=== PATIENT | male | born 1970 | race Caucasian/White ===

== ENCOUNTER → 2017-03-29 | Outpatient (CLI) | payer BC ==
--- NOTE | 2017-03-29 10:25 | US ---
EXAMINATION TYPE: US abdomen complete DATE OF EXAM: 03/29/2017 COMPARISON: NONE CLINICAL HISTORY: R11.2 Nausea/vomiting. Nausea and indigestion EXAM MEASUREMENTS: Liver Length: 17.4 cm Gallbladder Wall: 0.2 cm CBD: 0.3 cm Spleen: 10.7 cm Right Kidney: 12.0 x 4.7 x 5.3cm Left Kidney: 11.1 x 6.2 x 5.8cm Pancreas: Obscured by bowel gas Liver: attenuating Gallbladder: At least non-mobile, nonshadowing hyperechoic area measuring 4-5 mm is seen most compat ible with a polyp. Evidence for sonographic Krueger's sign: no CBD: wnl Spleen: wnl Right Kidney: no evidence of hydronephrosis or mass Left Kidney: no evidence of hydronephrosis or mass Upper IVC: wnl Abd Aorta: visualized portions appear wnl IMPRESSION: 1. No evidence of acute cholecystitis. At least one 4-5 mm gallbladder polyp is seen within the gallb ladder body dependently. Annual follow-up is recommended to ensure no interval growth.
== END | disposition home or self-care (01) ==
LOC: RADUSWWP 07:34
PROVIDERS: ATTEND Family Medicine
DX: K82.4 Cholesterolosis of gallbladder (principal)
CPT/HCPCS: 76700

== ENCOUNTER 2017-10-21 07:10 | Inpatient (IN) | payer BC ==
--- NOTE | 2017-10-21 07:55 | ED ---
General Adult HPI - General Chief complaint: Psychiatric Symptoms Stated complaint: menal health Time Seen by Provider: 10/21/17 07:40 Source: patient, RN notes reviewed Mode of arrival: ambulatory Limitations: no limitations - History of Present Illness Initial comments: Patient is a pleasant 47-year-old male presenting to emergency department with concerns for depression. Patient states he has chronic depression however is been much worse lately. Patient has thoughts of cutting himself with a scalpel in the neck. Patient states no history of previous attempts. No alcohol use last evening years. Occasional marijuana use. No physical complaints. No homicidal thoughts. - Related Data Home Medications Medication Instructions Recorded Confirmed Lisinopril [Zestril] 10 mg PO DAILY 10/21/17 10/21/17 Allergies Allergy/AdvReac Type Severity Reaction Status Date / Time codeine Allergy Unknown Verified 10/21/17 07:19 Review of Systems ROS Statement: Those systems with pertinent positive or pertinent negative responses have been documented in the HPI. ROS Other: All systems not noted in ROS Statement are negative. Constitutional: Denies: fever Eyes: Denies: eye pain ENT: Denies: ear pain Respiratory: Denies: cough Cardiovascular: Denies: chest pain Endocrine: Denies: fatigue Gastrointestinal: Denies: abdominal pain Genitourinary: Denies: dysuria Skin: Denies: rash Psychiatric: Reports: depression, suicidal thoughts. Denies: auditory hallucinations, visual hallucinations, homicidal thoughts Past Medical History Past Medical History: GERD/Reflux, Hypertension, Prostate Disorder History of Any Multi-Drug Resistant Organisms: None Reported Additional Past Surgical History / Comment(s): facial reconstruction surgeries. Past Psychological History: No Psychological Hx Reported Smoking Status: Former smoker Past Alcohol Use History: None Reported Past Drug Use History: Marijuana General Exam Limitations: no limitations General appearance: alert, in no apparent distress Head exam: Present: atraumatic Eye exam: Present: normal appearance Respiratory exam: Present: normal lung sounds bilaterally Cardiovascular Exam: Present: regular rate, normal rhythm GI/Abdominal exam: Present: soft. Absent: tenderness Extremities exam: Present: normal inspection Neurological exam: Present: alert Psychiatric exam: Present: depressed, suicidal ideation Skin exam: Present: normal color Course Vital Signs 10/21/17 07:13 Temperature 98.7 F Pulse Rate 104 H Respiratory 16 Rate Blood Pressure 135/85 O2 Sat by Pulse 96 Oximetry Medical Decision Making - Medical Decision Making Patient was seen by mental health services, who will admit. Disposition Clinical Impression: Depression, Suicidal ideation Disposition: TRANSFER TO PSYCH HOSP/UNIT Referrals: Don Riley DO [Primary Care Provider] - 1-2 days Decision Time: 10:38
[2017-10-21 11:51] VITALS: BMI 26.1
[2017-10-21] MEDS ORDERED: ACETAMINOPHEN TAB 325 MG TAB PO PRN (13:35)
[2017-10-21] MEDS: PANTOPRAZOLE 40 MG TABLET PO SCH (14:54)
--- NOTE | 2017-10-21 15:36 | P.CONS ---
History of Present Illness - Reason for Consult Recommendations regarding antidepressive medications gastroesophageal reflu - History of Present Illness Patient is admitted secondary to 4 for depression patient is comparing of her acid reflux symptoms which has been there for some time patient was already started on proton pump inhibitor which probably can be converted to Zantac 150 twice a day upon discharge patient is also on Maalox which can be continued. Patient was some comparing of low back pain patient was started on Tylenol for that. Review of Systems REVIEW OF SYSTEMS: CONSTITUTIONAL: No fever, no malaise, no fatigue. HEENT: No recent visual problems or hearing problems. Denied any sore throat. CARDIOVASCULAR: No chest pain, orthopnea, PND, no palpitations, no syncope. PULMONARY: No shortness of breath, no cough, no hemoptysis. GASTROINTESTINAL: No diarrhea, no nausea, no vomiting, no abdominal pain. Normoactive bowel sounds. NEUROLOGICAL: No headaches, no weakness, no numbness. HEMATOLOGICAL: Denies any bleeding or petechiae. GENITOURINARY: Denies any burning micturition, frequency, or urgency. MUSCULOSKELETAL/RHEUMATOLOGICAL: Denies any joint pain, swelling, or any muscle pain. ENDOCRINE: Denies any polyuria or polydipsia. The rest of the 14-point review of systems is negative. Past Medical History Past Medical History: GERD/Reflux, Hypertension, Prostate Disorder History of Any Multi-Drug Resistant Organisms: None Reported Additional Past Surgical History / Comment(s): facial reconstruction surgeries. Past Psychological History: No Psychological Hx Reported Smoking Status: Former smoker Past Alcohol Use History: None Reported Past Drug Use History: Marijuana Medications and Allergies Home Medications Medication Instructions Recorded Confirmed Type Lisinopril [Zestril] 10 mg PO DAILY 10/21/17 10/21/17 History Allergies Allergy/AdvReac Type Severity Reaction Status Date / Time codeine Allergy Unknown Verified 10/21/17 12:57 Physical Exam Vitals: Vital Signs Temp Pulse Pulse Resp BP BP Pulse Ox 10/21/17 11:37 102 H 16 131/88 10/21/17 11:00 102 H 16 131/88 10/21/17 10:47 98.2 F 96 18 149/76 98 10/21/17 07:13 98.7 F 104 H 16 135/85 96 Intake and Output 10/21/17 10/21/17 10/21/17 06:59 14:59 22:59 Other: Weight 80.286 kg PHYSICAL EXAMINATION: GENERAL: The patient is alert and oriented x3, not in any acute distress. Well developed, well nourished. HEENT: Pupils are round and equally reacting to light. EOMI. No scleral icterus. No conjunctival pallor. Normocephalic, atraumatic. No pharyngeal erythema. No thyromegaly. CARDIOVASCULAR: S1 and S2 present. No murmurs, rubs, or gallops. PULMONARY: Chest is clear to auscultation, no wheezing or crackles. ABDOMEN: Soft, nontender, nondistended, normoactive bowel sounds. No palpable organomegaly. MUSCULOSKELETAL: No joint swelling or deformity. EXTREMITIES: No cyanosis, clubbing, or pedal edema. NEUROLOGICAL: Gross neurological examination did not reveal any focal deficits. SKIN: No rashes. Assessment and Plan Plan: -Gastroesophageal reflux disease: Patient the was started on proton inhibitor as well as Maalox which can be continued as mentioned above patient can be switched to Zantac him for discharge and Maalox can be continued -Chronic low back pain: Tylenol as needed -Suicidal ideation and depression: Management as per primary service -Marijuana use: Counseling was provided
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
[2017-10-22] MEDS: PANTOPRAZOLE 40 MG TABLET PO SCH (08:18)
[2017-10-22] MEDS: LISINOPRIL 10 MG TAB PO SCH (08:18)
[2017-10-22] MEDS: FLUoxetine HCL 10 MG CAP PO SCH (09:37)
[2017-10-22 09:46] LABS: Basophils % (A) 0 %; Eosinophils # (A) 0.1 k/uL (0-0.7); Eosinophils % (A) 1 %; HCT 45.8 % (39.0-53.0); HGB 15.7 gm/dL (13.0-17.5); Lymphocytes # (A) 1.2 k/uL (1.0-4.8); Lymphocytes % (A) 15 %; MCH 28.6 pg (25.0-35.0); MCHC 34.4 g/dL (31.0-37.0); MCV 83.2 fL (80.0-100.0); Mean Platelet Volume 6.6; Monocytes # (A) 0.5 k/uL (0-1.0); Monocytes % (A) 7 %; Neutrophils # (A) 5.9 k/uL (1.3-7.7); Neutrophils % (A) 75 %; Platelet Count 389 k/uL (150-450); RBC 5.51 m/uL (4.30-5.90); RDW 12.9 % (11.5-15.5); WBC 7.8 k/uL (3.8-10.6)
[2017-10-22 10:20] LABS: ALT 22 U/L (21-72); AST 29 U/L (17-59); Albumin 4.5 g/dL (3.5-5.0); Alkaline Phosphatase 47 U/L (38-126); Anion Gap 17 mmol/L; Blood Urea Nitrogen 24 mg/dL (9-20); Calcium 10.2 mg/dL (8.4-10.2); Carbon Dioxide 25 mmol/L (22-30); Chloride 101 mmol/L (98-107); Glucose 148 mg/dL (74-99); Potassium 3.9 mmol/L (3.5-5.1); Sodium 143 mmol/L (137-145); Total Bilirubin 0.8 mg/dL (0.2-1.3); Total Protein 7.7 g/dL (6.3-8.2)
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
[2017-10-23 05:48] LABS: Appearance,Urine Clear (Clear); Bilirubin,Urine Negative (Negative); Blood,Urine Trace (Negative); Color,Urine Yellow; Glucose,Urine (UA) Negative (Negative); Hyaline Casts,Urine 4 /lpf (0-2); Ketones,Urine 1+ (Negative); Leukocyte Esterase,Urine Negative (Negative); Mucus,Urine Many /hpf; Nitrite,Urine Negative (Negative); PH, Urine 5.5 (5.0-8.0); Protein,Urine Trace (Negative); Specific Gravity,Urine 1.024 (1.001-1.035); Squamous Epithelial Cell,Urine 1 /hpf (0-4); Urobilinogen,Urine <2.0 mg/dL (<2.0); WBC,Urine 1 /hpf (0-5)
[2017-10-23 05:51] LABS: Amphetamine Screen,Urine Not Detected (NotDetected); Barbiturate Screen,Urine Not Detected (NotDetected); Benzodiazepines Screen,Urine Not Detected (NotDetected); Cocaine Screen,Urine Not Detected (NotDetected); Methadone Screen, Urine Not Detected (NotDetected); Opiate Screen,Urine Not Detected (NotDetected); Oxycodone Screen, Urine Not Detected (NotDetected); Phencyclidine Screen,Urine Not Detected (NotDetected); Tricyclic Antidepressant,Urine Not Detected (NotDetected); Urn Cannabinoid Scrn Detected (NotDetected)
[2017-10-23 06:44] VITALS: RESP 16
[2017-10-23] MEDS: FLUoxetine HCL 10 MG CAP PO SCH (08:35)
[2017-10-23] MEDS: PANTOPRAZOLE 40 MG TABLET PO SCH (08:35)
[2017-10-23] MEDS: LISINOPRIL 10 MG TAB PO SCH (08:36)
[2017-10-23] MEDS: MAG HYDROX/AL HYDROX/SIMETH 30 ML CUP PO PRN ×2 (09:18→21:21)
[2017-10-23] MEDS: hydrOXYzine PAMOATE 25 MG CAP PO PRN (09:38)
--- NOTE | 2017-10-23 14:04 | P.PN ---
Progress Note - Text Progress Note Date: 10/23/17 Interval History: Patient is a 47-year-old male who was seen today and he reports that he is feeling extremely anxious, feels like throwing up all the time and has not been eating well. He states that he wasn't eating well at home either. He states he's been eating about a third or less of his meals here. Patient states that he is having crying spells and not coping well. He denies suicidal thoughts stating that he wants to live. Patient states that he is trying his hardest but continues to feel anxious and depressed. Patient reports no side effects from the medication. Mental Status: Appearance/Attitude: Patient is casually dressed, makes eye contact and is cooperative. Behavior: Patient does not exhibit any psychomotor agitation or retardation. Speech/Language: Patient's speech was spontaneous and normal volume and rhythm and he was coherent. Thought Process: Patient is goal-directed there is no evidence of loose associations or flight of ideas. Thought Content: Patient denies auditory or visual hallucinations and no delusions or paranoid ideation or elicited. Patient states that he is feeling extremely anxious is unable to eat because he feels nauseated when he looks at food. Patient states he's had trouble eating at home and has been losing weight. He states that this is due to changing his diet. Patient requested that he be allowed to drink soda during meals to give him an extra boost and states that he uses caffeine free soda's. Patient states that he did sleep well last night Suicidal/Homicidal Ideation: Patient denies any current suicidal or homicidal ideation Sensorium/Cognition: Patient is alert and oriented to person, place, and time and his recent and remote memory are grossly intact. Mood/Affect: Patient's mood remains depressed and anxious times he was quite tearful during the interview and his affect is appropriate to his mood Insight/Judgment: Patient's insight and judgment are fair. Assessment: Patient reports continuing to feel depressed and anxious, having difficulty eating with no appetite and feeling nauseated when he tries to he. Patient states that he has been feeling more anxious but is unable to report why. States that he is just not coping well and continues to have crying spells intermittently. Patient states that he is not having any suicidal thoughts and doesn't want to . Patient was requesting the use of soda to give him a boost even though he drinks soda without caffeine. Patient is concerned about losing weight. Plan: Patient continue on Prozac 10 mg daily to target his depression and will begin Vistaril 25 mg 3 times a day as needed for anxiety and I reviewed the use and side effects of the medication. We'll also order an sure as a supplement to his meals. Patient continues to require hospitalization to further stabilize his mood but would anticipate a discharge towards the end of the week. Patient was encouraged to attend groups and activities.
[2017-10-24] MEDS: LISINOPRIL 10 MG TAB PO SCH (08:21)
[2017-10-24] MEDS: FLUoxetine HCL 10 MG CAP PO SCH (08:21)
[2017-10-24] MEDS: PANTOPRAZOLE 40 MG TABLET PO SCH (08:21)
[2017-10-24] MEDS: hydrOXYzine PAMOATE 25 MG CAP PO PRN (08:22)
--- NOTE | 2017-10-24 12:44 | P.PN ---
Progress Note - Text Progress Note Date: 10/24/17 Interval History: Patient is a 47-year-old male who reports that he is still feeling depressed, no further suicidal thoughts. Patient states that he was drinking ensure with each meal and has been eating some of each meal. Patient states that he still feels overwhelmed, states he has been learning coping strategies and the need for him to let go of past grievances. Patient states that his house is also something that overwhelms him as it is full of clutter and not clean. Patient reports using the Vistaril with good relief of his anxiety but felt sleepy afterwards. He reports still feeling depressed, reported that he did sleep well last evening. Mental Status: Appearance/Attitude: Patient is casually dressed in a sweatshirt that his ripped at the neckline and sleeps, makes good eye contact and is cooperative Behavior: Patient does not exhibit any psychomotor agitation or retardation. Speech/Language: Patient's speech is spontaneous of normal volume and rhythm and he is coherent. Thought Process: Patient is goal-directed, there is no evidence of loose association or flight of ideas. Thought Content: Patient denies auditory or visual hallucinations no delusions or paranoid ideation or elicited. Patient continues to feel overwhelmed, stating that the house is full of clutter and his is not able to care for any of the housekeeping due to her rheumatoid arthritis. He states that he still feels depressed, little motivation to do things. He reports that he was able to eat some of each meal and has been drinking ensure it each meal. Patient states that he use the Vistaril with some relief of his anxiety but states that he still has a sinking sensation in the pit of his stomach. Suicidal/Homicidal Ideation: Patient reports a fleeting suicidal thought yesterday currentlysuicidal ideation or homicidal ideation Sensorium/Cognition: Patient is alert and oriented to person, place, and time and his recent and remote memory are grossly intact Mood/Affect: Patient's mood is less depressed and his affect is appropriate to his mood Insight/Judgment: Patient's insight and judgment are intact Assessment: Patient continues to report feeling overwhelmed and depressed, states that he had a fleeting suicidal thought yesterday but no current suicidal thoughts. He states he is overwhelmed when he thinks of his house in the clutter and the fact that his is unable to keep it clean and insurance follow up specialist due to her rheumatoid arthritis. Patient states that he has little motivation to do things but has been attending groups and activities and states that he is learned that he needs to give up past grievances as a coping strategy. Patient reports that the Vistaril was effective in helping with his anxiety but made him feel drowsy. Patient reports no other complaints of side effects. Plan: Patient will continue on Prozac 10 mg in the morning and Vistaril 25 mg as needed for anxiety. Patient and I discussed discharge this Sunday and he was agreeable with that plan. Patient was encouraged to continue to attend groups and activities. Patient continues to require hospitalization to further stabilize his mood.
[2017-10-24] MEDS: MAG HYDROX/AL HYDROX/SIMETH 30 ML CUP PO PRN (18:14)
[2017-10-25] MEDS: PANTOPRAZOLE 40 MG TABLET PO SCH (08:41)
[2017-10-25] MEDS: FLUoxetine HCL 10 MG CAP PO SCH (08:41)
[2017-10-25] MEDS: LISINOPRIL 10 MG TAB PO SCH (08:41)
[2017-10-25] MEDS: MAG HYDROX/AL HYDROX/SIMETH 30 ML CUP PO PRN ×3 (08:42→18:19)
--- NOTE | 2017-10-25 12:30 | P.PN ---
Progress Note - Text Progress Note Date: 10/25/17 Interval History: Patient is a 47-year-old male who reports that he is feeling much better, he states that he continues to have had some episodes of suicidal thoughts but is able to push them out of his mind. He states that he is still anxious about leaving at getting back into the same behaviors that he was doing before he was admitted. He states that he spoke with a friend last evening who told him that he needed to change the way he did stuff and was yelling at him and the patient got upset with this. Patient states that he is considering moving apartments so that he is closer to work and does not need to require a car to get to his job. Patient states that discussing this and other ideas have helped him feel more in control. He states that his has arranged to have someone come in and assist her in cleaning the apartment before he returns home. Patient reports no side effects from the medication and states that he is using the end sure at all 3 meals and has been eating more than he was several days ago. Mental Status: Appearance/Attitude: Patient is casually dressed and makes good eye contact and is cooperative. Behavior: Patient does not display any psychomotor agitation or retardation. Speech/Language: Patient's speech is spontaneous of normal volume and rhythm and he is coherent. Thought Process: Patient's thoughts are goal-directed there is no evidence of loose association or flight of ideas Thought Content: Patient denies any auditory or visual hallucinations and no delusions or paranoid ideation or elicited. Patient states that he continues to feel anxious at times and has at times still had some suicidal thoughts but is able to ignore them. He states that he slept fairly well last evening and his appetite is improving. Patient states that he feels more in control with some plans that he is made once he is discharged. Suicidal/Homicidal Ideation: Patient continues to report episodes of suicidal thoughts but no plans to act on them and no current homicidal ideation. Sensorium/Cognition: Patient is alert and oriented to person, place, and time and his recent and remote memory are grossly intact. Mood/Affect: Patient's mood remains slightly depressed and anxious and his affect is appropriate. Insight/Judgment: Patient's insight and judgment are fair. Assessment: Patient reports that he is feeling less depressed, still having some anxiety as well as an occasional suicidal thought. Patient states he is more focused on trying to make plans once he is discharged to make things easier for himself and he is decided to move closer to work so that he will not have to rely on a car to get to work and therefore worry about the expense of that. Patient states that he is feeling more in control and has a more positive outlook. Patient states a phone call with a friend was upsetting because the friend was yelling at him for not doing things differently. Patient reports no side effects from the medication and states that the Vistaril was helpful for controlling the anxiety but made him feel groggy. Patient has been attending groups and activities. Plan: Patient continue on Prozac 10 mg in the morning and Vistaril 25 mg as needed for anxiety. Patient and I discussed discharge tomorrow and he was agreeable with this and was encouraged to follow up with outpatient aftercare.
[2017-10-25] MEDS: hydrOXYzine PAMOATE 25 MG CAP PO PRN (16:58)
[2017-10-26 06:21] VITALS: BP 146/75; PULSE 105; TEMP 98.9
[2017-10-26] MEDS: hydrOXYzine PAMOATE 25 MG CAP PO PRN (07:47)
[2017-10-26] MEDS: PANTOPRAZOLE 40 MG TABLET PO SCH (07:47)
[2017-10-26] MEDS: LISINOPRIL 10 MG TAB PO SCH (08:48)
[2017-10-26] MEDS: FLUoxetine HCL 10 MG CAP PO SCH (08:48)
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
[2017-10-26] MEDS: MAG HYDROX/AL HYDROX/SIMETH 30 ML CUP PO PRN (13:02)
== END 2017-10-26 14:36 | disposition home or self-care (01) | DRG 885 ==
LOC: EC 07:10 → 3MHU 10:42
PROVIDERS: ADMIT Psychiatry & Neurology Psychiatry; ATTEND Psychiatry & Neurology Psychiatry
DX: F33.2 Major depressive disorder, recurrent severe without psychotic features (principal); R45.851 Suicidal ideations; F12.90 Cannabis use, unspecified, uncomplicated; F41.0 Panic disorder [episodic paroxysmal anxiety]; G89.29 Other chronic pain; I10 Essential (primary) hypertension; K21.9 Gastro-esophageal reflux disease without esophagitis; Z79.899 Other long term (current) drug therapy; Z87.891 Personal history of nicotine dependence; Z88.5 Allergy status to narcotic agent; Z81.3 Family history of other psychoactive substance abuse and dependence; M54.5 Low back pain; F60.4 Histrionic personality disorder; Z59.9 Problem related to housing and economic circumstances, unspecified
CPT/HCPCS: 80053; 80306; 81001; 82075; 84443; 85025; 99285

== ENCOUNTER 2022-12-08 06:37 | Day surgery (SDC) | payer BC ==
[2022-12-06 10:14] VITALS: BMI 25.8
[~2022-12-08 06:37] MED LIST: LACTATED RINGERS 1,000 ML IV SCH
[2022-12-08 07:13] VITALS: TEMP 97.1
[2022-12-08] MEDS ORDERED: PROPOFOL 10 MG/ML 20 ML VIAL IV ONE (07:48)
--- NOTE | 2022-12-08 08:08 | P.PCN ---
Date of Procedure: 12/08/22 Procedure(s) Performed: Brief history: Patient is a pleasant 52-year-old white male scheduled for an upper endoscopy as well as colonoscopy as a part of evaluation of long-standing history of GERD and screening for colon cancer . His father was diagnosed with esophageal cancer at age 60. Procedure performed: Esophagogastroduodenoscopy with biopsy Colonoscopy Preoperative diagnosis: Long-standing history of GERD Screening for colon cancer Anesthesia: MAC Procedure: After informed consent was obtained from the patient was brought into the endoscopy unit and IV sedation was administered by anesthesia under continuous monitoring. Initially upper endoscopy was done. The Olympus GF 160 video endo scope was inserted inserted into the mouth and esophagus intubated without any difficulty and was gradually advanced into the stomach and duodenum and carefully examined. The bulb and second part of the duodenum appeared normal. The scope was then withdrawn into the stomach adequately insufflated with air and upon careful examination the antrum had patchy areas of erythema and biopsies were done from this area. The body the stomach there are multiple small gastric polyps noted which were biopsied. Rest of the body, cardia and fundus appeared normal. The scope was then withdrawn into the esophagus. Small hiatal hernia noted. The GE junction was located at 36 cm to the incisors. It appeared irregular and there was a short tongue of Lindquist's appearing mucosa extending 3-4 mm proximal to the GE junction which was biopsied Rest of the esophagus appeared normal. Patient tolerated the procedure well. At this time the patient continued to remain sedation. Initial digital rectal e xamination was normal. Olympus CF 160 video colonoscope was then inserted into the rectum and gradually advanced to the cecum without any difficulty. Careful examination was performed as the scope was gradually being withdrawn. The prep was excellent. The cecum, ascending colon, transverse colon, descending colon, sigmoid colon and rectum appeared normal. Retroflexion was performed in the rec greg and no lesions were noted. Patient tolerated the procedure well. Impression: 1. 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 Colonoscopy was within normal limits with no evidence of colorectal neoplasia Recommendations: Findings of this examination were discussed with the patient as well as his family. He was advised to follow with the biopsy results. If the biopsy reveals Lindquist's esophagus, he can have a repeat upper endoscopy in 3 years. In the meantime he will continue with Protonix 40 mg daily and follow antireflux measures. Recommend repeat screening colonoscopy in 10 years.
[2022-12-08 08:20] VITALS: RESP 16
[2022-12-08 08:33] VITALS: BP 150/90; PULSE 70
== END 2022-12-08 09:03 | disposition home or self-care (01) ==
LOC: ORWHC2ENDO 06:37
PROVIDERS: ATTEND Internal Medicine Gastroenterology
DX: Z12.11 Encounter for screening for malignant neoplasm of colon (principal); K44.9 Diaphragmatic hernia without obstruction or gangrene; K31.7 Polyp of stomach and duodenum; K22.70 Barrett's esophagus without dysplasia; I10 Essential (primary) hypertension; F12.90 Cannabis use, unspecified, uncomplicated; K21.9 Gastro-esophageal reflux disease without esophagitis; Z79.890 Hormone replacement therapy; Z88.5 Allergy status to narcotic agent
CPT/HCPCS: 88305; 45378; 43239; J2704